=== PATIENT | female | born 1975 | race Caucasian/White ===

== ENCOUNTER 2016-12-14 | Inpatient (IN) | payer OTHER, MEDICARE, MEDICAID ==
[~2016-12-14] VITALS: Ht 167.6 cm; Wt 57.1 kg
[2016-12-14] VITALS (10 sets, daily range): BP systolic 82–136; BP diastolic 51–74
[2016-12-14] MEDS ORDERED: PANTOPRAZOLE 80 MG in SODIUM CHLORIDE 0.9% 50 ML IVPB ONE (00:11)
[2016-12-14] MEDS ORDERED: FENTANYL PF 100 MCG/2ML ONE (00:24)
[2016-12-14] MEDS ORDERED: PANTOPRAZOLE 40 MG IV ONE (00:24)
[2016-12-14] MEDS ORDERED: ONDANSETRON 2MG/ML, 2ML ONE (00:24)
[2016-12-14] MEDS ORDERED: SODIUM CHLORIDE 0.9% 1,000ML IVBOLUS ONE ×2 (00:30→01:30)
[2016-12-14] MEDS ORDERED: SODIUM CHLORIDE FLUSH 10ML SYR IVF ONE (00:30)
[2016-12-14] MEDS ORDERED: PANTOPRAZOLE 40 MG IV IVP ONE (00:30)
[2016-12-14] MEDS ORDERED: FENTANYL PF 100 MCG/2ML IVPush PRN (00:30)
[2016-12-14] MEDS ORDERED: ONDANSETRON 2MG/ML, 2ML IVPush ONE (00:30)
[2016-12-14 00:55] LABS: ASPARTATE AMINO TRANSFERASE 9 U/L (15-37)
[2016-12-14 01:00] LABS: DIFF TOTAL CELLS COUNTED 100 CELL DIFF
[2016-12-14 01:04] LABS: BLOOD UREA NITROGEN 105 mg/dL (7-18); VERIFY COUNTS? YES
[2016-12-14 01:05] LABS: HYPOCHROMIA 1+; POLYCHROMASIA 1+
[2016-12-14 01:08] LABS: IS PT STATUS REG ER OR PRE ER? YES
[2016-12-14] MEDS ORDERED: CEFTRIAXONE PMX 1GM/50ML 50 ML IVPB ONE (01:30)
[2016-12-14] MEDS ORDERED: CEFTRIAXONE PMX 1GM/50ML 50 ML ONE (02:01)
[2016-12-14] MEDS ORDERED: SODIUM CHLORIDE 0.9% 1,000 ML IV SCH (02:45)
[2016-12-14] MEDS ORDERED: SPIR50TA2 PO (02:50)
[2016-12-14] MEDS ORDERED: SUCR1TAB26 PO (02:50)
[2016-12-14] MEDS ORDERED: POTA20PA8 PO (02:50)
[2016-12-14] MEDS ORDERED: RANI150T4 PO (02:50)
[2016-12-14] MEDS ORDERED: RABE20TA5 PO (02:50)
[2016-12-14] MEDS ORDERED: POTASSIUM CHLORIDE 40 MEQ in SODIUM CHLORIDE 0.9% 500 ML IV ONE (03:00)
[2016-12-14] MEDS: PROMETHAZINE 25 MG/ML, 1ML IM PRN ×3 (03:54→20:27)
[2016-12-14 04:07] LABS: ASPARTATE AMINO TRANSFERASE 9 U/L (15-37)
[2016-12-14 04:11] LABS: BLOOD UREA NITROGEN 101 mg/dL (7-18); IS PT STATUS REG ER OR PRE ER? NO
[2016-12-14] MEDS: PANTOPRAZOLE 80 MG in SODIUM CHLORIDE 0.9% 100 ML IV SCH ×2 (06:29→13:00)
[2016-12-14 09:34] LABS: IS PT STATUS REG ER OR PRE ER? NO
[2016-12-14] MEDS: VANCOMYCIN 50 MG/ML ORAL SUSP PO SCH ×3 (10:02→21:39)
[2016-12-14] MEDS: POTASSIUM CHLORIDE 20 MEQ in SODIUM CHLORIDE 0.9% 1,000 ML IV SCH ×2 (10:04→20:27)
[2016-12-14] MEDS ORDERED: MIDAZOLAM 1 MG/ML, 5ML ONE (12:54)
[2016-12-14] MEDS ORDERED: FENTANYL PF 250 MCG/5ML ONE (12:55)
[2016-12-14] MEDS: ONDANSETRON 2MG/ML, 2ML IVPush PRN (17:11)
[2016-12-14] MEDS: MORPHINE SULFATE 4 MG/ML, 1ML IVPush PRN ×2 (17:11→20:27)
[2016-12-14] MEDS: PANTOPRAZOLE 40 MG IV IVPush SCH (20:27)
[2016-12-15] MEDS: MORPHINE SULFATE 4 MG/ML, 1ML IVPush PRN ×5 (01:49→15:59)
[2016-12-15] MEDS ORDERED: CEFTRIAXONE PMX 1GM/50ML 50 ML IV SCH (03:00)
[2016-12-15] MEDS: POTASSIUM CHLORIDE 20 MEQ in SODIUM CHLORIDE 0.9% 1,000 ML IV SCH ×2 (03:10→20:37)
[2016-12-15] MEDS: VANCOMYCIN 50 MG/ML ORAL SUSP PO SCH ×4 (03:35→20:37)
[2016-12-15 04:00] VITALS: BP 108/70
[2016-12-15] MEDS: ONDANSETRON 2MG/ML, 2ML IVPush PRN (06:28)
[2016-12-15] MEDS ORDERED: EPINEPHRINE SYRINGE 0.1 MG/ML, 10ML ONE (08:11)
[2016-12-15 09:03] LABS: ASPARTATE AMINO TRANSFERASE 7 U/L (15-37); BLOOD UREA NITROGEN 50 mg/dL (7-18)
[2016-12-15] MEDS: PANTOPRAZOLE 40 MG IV IVPush SCH ×2 (09:41→20:37)
[2016-12-15] MEDS: HYDROcodone/APAP 5/325 TABLET PO PRN ×3 (09:41→20:15)
[2016-12-15] MEDS: POTASSIUM CHLORIDE 20 MEQ TAB.ER.PRT PO SCH ×3 (12:39→18:45)
[2016-12-15 13:47] VITALS: BP 102/56
[2016-12-15] MEDS ORDERED: ONDANSETRON 2MG/ML, 2ML IVPush PRN (15:30)
[2016-12-15 17:06] VITALS: BP 87/55
[2016-12-15] MEDS ORDERED: SODIUM CHLORIDE 0.9% 250 ML IV ONE (17:30)
[2016-12-15 20:14] VITALS: BP 104/72
[2016-12-16 01:35] VITALS: BP 111/74
[2016-12-16] MEDS: HYDROcodone/APAP 5/325 TABLET PO PRN ×4 (01:57→13:06)
[2016-12-16 02:26] LABS: BLOOD UREA NITROGEN 31 mg/dL (7-18)
[2016-12-16] MEDS ORDERED: MAGNESIUM SULFATE PMX 2GM/50ML 50 ML IV ONE ×2 (03:30)
[2016-12-16] MEDS: VANCOMYCIN 50 MG/ML ORAL SUSP PO SCH ×2 (03:33→08:33)
[2016-12-16] MEDS: POTASSIUM CHLORIDE 20 MEQ in SODIUM CHLORIDE 0.9% 1,000 ML IV SCH (06:07)
[2016-12-16 08:30] VITALS: BP 117/86
[2016-12-16] MEDS: PANTOPRAZOLE 40 MG IV IVPush SCH (08:33)
[2016-12-16] MEDS ORDERED: SPIRONOLACTONE 25 MG TABLET PO SCH (09:30)
[2016-12-16] MEDS ORDERED: CEFU250T66 PO (10:32)
[2016-12-16] MEDS ORDERED: SPIR25TA PO (10:32)
[2016-12-16] MEDS ORDERED: OMEP-110 PO (10:32)
[2016-12-16] MEDS ORDERED: VANC1VIA3 PO (10:32)
[2016-12-16] MEDS ORDERED: POTA20PA8 PO (10:32)
[2016-12-16] MEDS: POTASSIUM CHLORIDE 20 MEQ PACKET PO SCH ×2 (11:00→12:30)
[2016-12-16] MEDS ORDERED: POTASSIUM CHLORIDE 20 MEQ TAB.ER.PRT PO SCH (11:00)
== END 2016-12-16 13:20 | disposition home or self-care (01) | DRG 380 ==
LOC: ED 00:50 → EDIP 01:37 → SUATTDRO 02:27 → CCU 03:19 → 3NW 12-15 12:59
PROVIDERS: ADMIT Internal Medicine; ATTEND Internal Medicine
PROC: 3E0G8GC Introduction of Other Therapeutic Substance into Upper GI, Via Natural or Artificial Opening Endoscopic (ICD-10-PCS; 2016-12-14)
PROC: 0W3P8ZZ Control Bleeding in Gastrointestinal Tract, Via Natural or Artificial Opening Endoscopic (ICD-10-PCS; 2016-12-14)
PROC: 0DB68ZX Excision of Stomach, Via Natural or Artificial Opening Endoscopic, Diagnostic (ICD-10-PCS; 2016-12-14)
PROC: 0T9B70Z Drainage of Bladder with Drainage Device, Via Natural or Artificial Opening (ICD-10-PCS; 2016-12-14)
PROC: 30233N1 Transfusion of Nonautologous Red Blood Cells into Peripheral Vein, Percutaneous Approach (ICD-10-PCS; principal; 2016-12-14 14:15)
DX: K22.11 Ulcer of esophagus with bleeding (principal); E43 Unspecified severe protein-calorie malnutrition; N17.9 Acute kidney failure, unspecified; N18.4 Chronic kidney disease, stage 4 (severe); R57.9 Shock, unspecified; D62 Acute posthemorrhagic anemia; E87.2 Acidosis; E87.1 Hypo-osmolality and hyponatremia; A04.7 Enterocolitis due to Clostridium difficile; K26.4 Chronic or unspecified duodenal ulcer with hemorrhage; K44.9 Diaphragmatic hernia without obstruction or gangrene; K21.0 Gastro-esophageal reflux disease with esophagitis; E86.1 Hypovolemia; N30.10 Interstitial cystitis (chronic) without hematuria; K31.84 Gastroparesis; E87.6 Hypokalemia; E86.0 Dehydration; D72.825 Bandemia; N20.0 Calculus of kidney; M79.7 Fibromyalgia; F32.9 Major depressive disorder, single episode, unspecified; F41.9 Anxiety disorder, unspecified; Z87.440 Personal history of urinary (tract) infections; Z86.010 Personal history of colon polyps; Z68.20 Body mass index [BMI] 20.0-20.9, adult
CPT/HCPCS: 36415; 71010; 80048; 80053; 81001; 82550; 82728; 82941; 83540; 83550; 83605; 83690; 83735; 84100; 84132; 84484; 84703; 85014; 85018; 85025; 85610; 85730; 86078; 86850; 86900; 86923; 87040; 87077; 87081; 87086; 87186; 87324; 87493; 88305; 93005; J0696; J2250; J2405; J2550; J3010; J3370; J3480; C9113; J3475; J7030; J7040; P9016

== ENCOUNTER 2017-01-22 14:27 | Emergency (ER) | payer OTHER, MEDICARE, MEDICAID ==
[~2017-01-22] VITALS: Ht 167.6 cm; Wt 58.0 kg
[~2017-01-22 14:27] MED LIST: CEFU250T66 PO; OMEP-110 PO; POTA20PA8 PO; RABE20TA5 PO; RANI150T4 PO; SPIR25TA PO; SPIR50TA2 PO; SUCR1TAB26 PO; VANC1VIA3 PO
[2017-01-22] MEDS ORDERED: SODIUM CHLORIDE 0.9% 1,000 ML IV ONE (15:26)
[2017-01-22] MEDS ORDERED: PANTOPRAZOLE 80 MG in SODIUM CHLORIDE 0.9% 50 ML IVPB ONE (15:26)
[2017-01-22] MEDS ORDERED: HYDROmorphone 1 MG/ML, 1ML IVPush PRN (15:30)
[2017-01-22] MEDS ORDERED: SODIUM CHLORIDE 0.9% 1,000ML IVBOLUS ONE (15:30)
[2017-01-22] MEDS ORDERED: ONDANSETRON 2MG/ML, 2ML IVPush ONE (15:30)
[2017-01-22] MEDS ORDERED: SODIUM CHLORIDE FLUSH 10ML SYR IVF ONE (15:30)
[2017-01-22] MEDS ORDERED: HYDROmorphone 1 MG/ML, 1ML ONE (16:22)
[2017-01-22] MEDS ORDERED: ONDANSETRON 2MG/ML, 2ML ONE (16:22)
[2017-01-22 16:35] LABS: ASPARTATE AMINO TRANSFERASE 12 U/L (15-37); BLOOD UREA NITROGEN 11 mg/dL (7-18)
[2017-01-22 17:17] VITALS: BP 118/74
[2017-01-22] MEDS ORDERED: SPIR50TA2 PO (17:20)
[2017-01-22] MEDS ORDERED: CITA40TA12 PO (17:22)
[2017-01-22] MEDS ORDERED: CYAN100063 INJ (17:22)
[2017-01-22] MEDS ORDERED: RANI-276 PO (17:22)
[2017-01-22] MEDS ORDERED: DIPH1TAB PO (17:22)
== END 2017-01-22 17:59 | disposition home or self-care (01) ==
LOC: ED 16:21
DX: K29.00 Acute gastritis without bleeding (principal); N19 Unspecified kidney failure; Z90.721 Acquired absence of ovaries, unilateral
CPT/HCPCS: 36415; 74022; 80053; 81003; 83605; 83690; 84484; 84703; 85025; 85610; 85730; 93005; 96365; 96375; 99285; C9113; J1170; J2405; J7030

== ENCOUNTER → 2017-06-30 | Outpatient (CLI) | payer OTHER, MEDICARE, MEDICAID ==
[~2017-06-30] MED LIST changes: +CITA40TA12 PO; +CYAN100063 INJ; +DIPH1TAB PO; +POTA20PA25 PO; -POTA20PA8 PO; +RABE20TA18 PO; -RABE20TA5 PO; +RANI-276 PO; -SUCR1TAB26 PO; +SUCR1TAB33 PO
== END | disposition home or self-care (01) ==
LOC: RAD 15:11
PROVIDERS: ATTEND Neurological Surgery
DX: M41.83 Other forms of scoliosis, cervicothoracic region (principal); M47.892 Other spondylosis, cervical region; S13.140A Subluxation of C3/C4 cervical vertebrae, initial encounter; X58.XXXA Exposure to other specified factors, initial encounter; Y93.89 Activity, other specified; Y92.89 Other specified places as the place of occurrence of the external cause; Y99.8 Other external cause status
CPT/HCPCS: 72082

== ENCOUNTER 2017-07-14 07:28 | Inpatient (IN) | payer OTHER, MEDICARE, MEDICAID ==
[~2017-07-14] VITALS: Ht 167.6 cm; Wt 63.0 kg
[~2017-07-14 07:28] MED LIST changes: +BACITRACIN 50,000 UNIT ONE; +BUPIVACAINE/PF 0.5% ONE; +EPINEPHRINE 1 MG/ML, 1ML ONE; +THROMBIN 20,000 UNIT VIAL TP ONE
[2017-07-14 07:58] LABS: HCG UR LOT HCG7030192
[2017-07-14 07:59] VITALS: BP 119/66
[2017-07-14] MEDS ORDERED: QUET50TA5 PO (08:08)
[2017-07-14] MEDS ORDERED: ONDA8TAB9 PO (08:08)
[2017-07-14] MEDS ORDERED: OMEP20TA62 PO (08:08)
[2017-07-14] MEDS ORDERED: POTA25TA PO (08:13)
[2017-07-14] MEDS ORDERED: SODIUM CHLORIDE 0.9% 1,000 ML IV SCH (08:13)
[2017-07-14 08:23] LABS: HCG UR OBC PASS
[2017-07-14] MEDS ORDERED: KETAMINE 10 MG/ML, 20ML ONE (09:03)
[2017-07-14] MEDS ORDERED: FENTANYL PF 100 MCG/2ML ONE ×3 (09:03→10:48)
[2017-07-14] MEDS ORDERED: REMIFENTANIL 2 MG ONE (09:03)
[2017-07-14] MEDS ORDERED: MIDAZOLAM 1 MG/ML, 2ML ONE (09:08)
[2017-07-14] MEDS ORDERED: BUPIVACAINE/PF 0.5% INFIL ONE (09:31)
[2017-07-14] MEDS ORDERED: BACITRACIN 50,000 UNIT IRRIG ONE (09:34)
[2017-07-14] MEDS ORDERED: EPINEPHRINE 1 MG/ML, 1ML INFIL ONE (09:34)
[2017-07-14] MEDS ORDERED: THROMBIN 20,000 UNIT VIAL TP ONE (09:35)
[2017-07-14] MEDS ORDERED: PROPOFOL 50 ML ONE (09:43)
[2017-07-14] MEDS ORDERED: PROPOFOL 10 MG/ML, 20ML ONE ×2 (09:43)
[2017-07-14] MEDS ORDERED: ONDANSETRON 2MG/ML, 2ML ONE (09:44)
[2017-07-14] MEDS ORDERED: DEXAMETHASONE 4 MG/ML, 1ML ONE ×2 (09:44)
[2017-07-14] MEDS ORDERED: EPHEDRINE 50 MG/ML, 1ML ONE (09:44)
[2017-07-14] MEDS ORDERED: CEFAZOLIN 1,000 MG ONE (09:44)
[2017-07-14] MEDS ORDERED: ROCURONIUM 10 MG/ML,10ML ONE (09:44)
[2017-07-14] MEDS ORDERED: ACETAMINOPHEN 650 MG/20.3 ML UDC ONE (10:47)
[2017-07-14] MEDS ORDERED: PROMETHAZINE 25 MG/ML, 1ML ONE (10:47)
[2017-07-14] MEDS ORDERED: OXYcodone 5 MG/5 ML ORAL.SOL UDC ONE ×2 (10:48→11:40)
[2017-07-14] MEDS: FENTANYL PF 100 MCG/2ML IV PRN ×2 (10:49→10:58)
[2017-07-14] MEDS ORDERED: ACETAMINOPHEN 325 MG TABLET PO PRN (11:00)
[2017-07-14] MEDS ORDERED: PROMETHAZINE 25 MG/ML, 1ML IV PRN (11:00)
[2017-07-14] MEDS ORDERED: DIAZEPAM 5 MG/ML, 2ML IVPush PRN (11:00)
[2017-07-14] MEDS ORDERED: MEPERIDINE/PF 25MG/0.5ML IVPush PRN (11:00)
[2017-07-14] MEDS ORDERED: METHOCARBAMOL 750 MG TABLET ONE (11:04)
[2017-07-14] MEDS: OXYcodone 5 MG/5 ML ORAL.SOL UDC PO PRN ×2 (11:10→11:41)
[2017-07-14] MEDS ORDERED: HYDROmorphone 2 MG/ML, 1ML ONE (11:13)
[2017-07-14] MEDS: HYDROmorphone 1 MG/ML, 1ML IV PRN ×3 (11:16→11:39)
[2017-07-14] MEDS ORDERED: METHOCARBAMOL 750 MG TABLET PO ONE (11:30)
[2017-07-14 12:25] VITALS: BP 100/65
[2017-07-14] MEDS ORDERED: morphine SULFATE 10 MG/ML, 1ML ONE (12:33)
[2017-07-14 13:20] LABS: BLOOD UREA NITROGEN 18 mg/dL (7-18)
[2017-07-14] MEDS ORDERED: DIPHENHYDRAMINE 50 MG CAPSULE PO PRN (13:30)
[2017-07-14] MEDS ORDERED: DIPHENHYDRAMINE 50 MG/ML, 1ML IM PRN (13:30)
[2017-07-14] MEDS ORDERED: LABETALOL 5MG/ML, 20ML IV PRN (13:30)
[2017-07-14] MEDS ORDERED: MAGNESIUM HYDROXIDE 8%, 30ML UDC PO PRN (13:30)
[2017-07-14] MEDS ORDERED: BISACODYL 10 MG SUPP PR PRN (13:30)
[2017-07-14] MEDS ORDERED: ONDANSETRON 2MG/ML, 2ML IV PRN (13:30)
[2017-07-14] MEDS ORDERED: morphine SULFATE 10 MG/ML, 1ML IV PRN (13:30)
[2017-07-14] MEDS ORDERED: HYDROcodone/APAP 5/325 TABLET PO PRN (13:30)
[2017-07-14] MEDS ORDERED: HYDROcodone/APAP 10/325 MG TABLET PO PRN (13:30)
[2017-07-14] MEDS: NS + 20MEQ KCL 1,000 ML IV SCH (14:19)
[2017-07-14] MEDS ORDERED: DIAZEPAM 5 MG/ML, 10ML VIAL IVPush PRN (16:30)
[2017-07-14] MEDS ORDERED: POTASSIUM CHLORIDE 20 MEQ TAB.ER.PRT PO ONE (16:30)
[2017-07-14] MEDS: CEFAZOLIN PMX 1GM/50ML 50 ML IVPB SCH (17:33)
[2017-07-14 18:30] VITALS: BP 99/64
[2017-07-14] MEDS: OXYcodone/APAP 10/325MG TABLET PO PRN (18:30)
[2017-07-14] MEDS: METHOCARBAMOL 750 MG TABLET PO PRN (19:38)
[2017-07-14] MEDS: SPIRONOLACTONE 50 MG TABLET PO SCH (20:56)
[2017-07-14] MEDS: OMEPRAZOLE 20 MG CAPSULE.DR PO SCH (20:56)
[2017-07-14] MEDS: K-LYTE 25 MEQ TABLET.EFF PO SCH (20:56)
[2017-07-14 22:33] VITALS: BP 92/44
[2017-07-15] MEDS: OXYcodone/APAP 10/325MG TABLET PO PRN ×3 (00:32→10:42)
[2017-07-15 00:44] VITALS: BP 97/64
[2017-07-15] MEDS: CEFAZOLIN PMX 1GM/50ML 50 ML IVPB SCH (00:56)
[2017-07-15] MEDS: NS + 20MEQ KCL 1,000 ML IV SCH (01:43)
[2017-07-15 04:54] VITALS: BP 92/58
[2017-07-15 05:30] LABS: BLOOD UREA NITROGEN 13 mg/dL (7-18)
[2017-07-15] MEDS: SPIRONOLACTONE 50 MG TABLET PO SCH (07:33)
[2017-07-15] MEDS: K-LYTE 25 MEQ TABLET.EFF PO SCH (07:40)
[2017-07-15] MEDS: METHOCARBAMOL 750 MG TABLET PO PRN (07:40)
[2017-07-15] MEDS: OMEPRAZOLE 20 MG CAPSULE.DR PO SCH (07:40)
[2017-07-15] MEDS ORDERED: DEXAMETHASONE 4 MG/ML, 1ML IV SCH (08:00)
[2017-07-15 08:10] VITALS: BP 95/62
[2017-07-15] MEDS ORDERED: SENNA/DOCUSATE TABLET PO SCH (09:00)
[2017-07-15] MEDS ORDERED: OXYC-307 PO (09:59)
[2017-07-15] MEDS ORDERED: SENN1TAB7 PO (10:00)
[2017-07-15] MEDS ORDERED: METH750T87 PO (10:00)
[2017-07-15] MEDS ORDERED: METH4TAB2 PO (10:01)
[2017-07-15] MEDS ORDERED: ONDANSETRON ODT 4 MG PO PRN (11:00)
== END 2017-07-15 11:35 | disposition home or self-care (01) | DRG 473 ==
LOC: ORIP 07:28 → 4NOR 12:27 → DCLOUNGE 07-15 11:15
PROVIDERS: ADMIT Neurological Surgery; ATTEND Neurological Surgery
PROC: 0RG10J0 Fusion of Cervical Vertebral Joint with Synthetic Substitute, Anterior Approach, Anterior Column, Open Approach (ICD-10-PCS; 2017-07-14)
PROC: 0RB30ZZ Excision of Cervical Vertebral Disc, Open Approach (ICD-10-PCS; principal; 2017-07-14 09:30)
DX: M50.023 Cervical disc disorder at C6-C7 level with myelopathy (principal)
CPT/HCPCS: 36415; 72040; 80048; 81025; C1713; J0171; J0690; J1100; J1170; J2250; J2405; J2550; J2704; J3010; J3480; J3490; Q0162; C1762; J2270; J7030

== ENCOUNTER → 2018-08-22 | Outpatient (CLI) | payer OTHER, MEDICARE, MEDICAID ==
[~2018-08-22] MED LIST changes: -BACITRACIN 50,000 UNIT ONE; -BUPIVACAINE/PF 0.5% ONE; -EPINEPHRINE 1 MG/ML, 1ML ONE; +METH4TAB2 PO; +METH750T87 PO; +OMEP20TA62 PO; +ONDA8TAB9 PO; +OXYC-307 PO; +POTA25TA PO; +QUET50TA5 PO; -RANI-276 PO; +RANI-448 PO; +SENN1TAB8 PO; -SPIR50TA2 PO; +SPIR50TA4 PO; -THROMBIN 20,000 UNIT VIAL TP ONE
== END | disposition home or self-care (01) ==
LOC: RAD 13:51
PROVIDERS: ATTEND Orthopaedic Surgery
DX: M89.8X8 Other specified disorders of bone, other site (principal)

== ENCOUNTER 2018-10-05 11:19 | Observation (INO) | payer OTHER, MEDICARE, MEDICAID ==
[~2018-10-05] VITALS: Ht 167.6 cm; Wt 64.6 kg
[~2018-10-05 11:19] MED LIST changes: +SENN-177 PO; -SENN1TAB8 PO
[2018-10-05] MEDS ORDERED: LACTATED RINGERS 1,000 ML IV SCH (12:35)
[2018-10-05] MEDS ORDERED: POTASSIUM PO ×2 (12:38→12:46)
[2018-10-05 12:42] LABS: ALANINE AMINOTRANSFERASE 23 U/L (12-78); ALBUMIN 4.5 g/dL (3.4-5.0); ANION GAP 10 mmol/L (5-15); CALCIUM 8.8 mg/dL (8.5-10.1); CHLORIDE 107 mmol/L (98-107); CREATININE 3.24 mg/dL (0.55-1.02)
[2018-10-05 12:45] LABS: ALKALINE PHOSPHATASE 80 U/L (45-117); BILIRUBIN,TOTAL 0.7 mg/dL (0.2-1.0); TOTAL PROTEIN 7.9 g/dL (6.4-8.2)
[2018-10-05] MEDS ORDERED: RANI-448 PO (12:46)
[2018-10-05] MEDS ORDERED: POTASSIUM CITRATE PO (12:46)
[2018-10-05] MEDS ORDERED: SUCR1TAB33 PO (12:46)
[2018-10-05] MEDS ORDERED: RABE20TA18 PO (12:46)
[2018-10-05] MEDS ORDERED: VITAMIN B12 SQ (12:46)
[2018-10-05] MEDS ORDERED: LAMOTIL PO (12:46)
[2018-10-05] MEDS ORDERED: HYDR-3652 PO (12:46)
[2018-10-05] MEDS ORDERED: OMEP20TA62 PO (12:46)
[2018-10-05 12:49] LABS: HCG UR SG 1.015 (1.003-1.030)
[2018-10-05 12:55] VITALS: BP 97/67
[2018-10-05] MEDS ORDERED: SODIUM CHLORIDE 0.9% 1,000 ML IV SCH (13:28)
[2018-10-05] MEDS ORDERED: FENTANYL PF 250 MCG/5ML ONE (13:38)
[2018-10-05] MEDS ORDERED: MIDAZOLAM 1 MG/ML, 2ML ONE (13:38)
[2018-10-05] MEDS ORDERED: PHENYLEPHRINE 10 MG/ML ONE (14:26)
[2018-10-05] MEDS ORDERED: CEFAZOLIN 1,000 MG ONE (14:26)
[2018-10-05] MEDS ORDERED: PROPOFOL 10 MG/ML, 20ML ONE (14:26)
[2018-10-05] MEDS ORDERED: DEXAMETHASONE 4 MG/ML, 1ML ONE (14:26)
[2018-10-05] MEDS ORDERED: ONDANSETRON 2MG/ML, 2ML ONE (14:26)
[2018-10-05] MEDS ORDERED: ACETAMINOPHEN 325 MG TABLET PO PRN (15:00)
[2018-10-05] MEDS ORDERED: ALBUTEROL SULFATE 2.5 MG/3 ML NPPB PRN (15:00)
[2018-10-05] MEDS ORDERED: OXYcodone 5 MG/5 ML ORAL.SOL UDC PO PRN ×2 (15:00→19:30)
[2018-10-05] MEDS ORDERED: hydrALAzine 20 MG/ML, 1ML IV PRN (15:00)
[2018-10-05] MEDS ORDERED: DIAZEPAM 5 MG/ML, 2ML IVPush PRN (15:00)
[2018-10-05] MEDS ORDERED: MEPERIDINE/PF 25MG/0.5ML IVPush PRN (15:00)
[2018-10-05] MEDS ORDERED: LABETALOL 5MG/ML, 20ML IV PRN (15:00)
[2018-10-05] MEDS ORDERED: FENTANYL PF 100 MCG/2ML ONE (15:45)
[2018-10-05] MEDS ORDERED: OXYcodone 5 MG/5 ML ORAL.SOL UDC ONE (15:45)
[2018-10-05] MEDS ORDERED: HYDROmorphone 2 MG/ML, 1ML ONE (15:45)
[2018-10-05] MEDS: FENTANYL PF 100 MCG/2ML IV PRN ×2 (15:48→16:13)
[2018-10-05] MEDS: HYDROmorphone 2 MG/ML, 1ML IVPush PRN ×3 (15:48→16:30)
[2018-10-05] MEDS ORDERED: PROMETHAZINE 25 MG/ML, 1ML ONE (15:52)
[2018-10-05] MEDS: PROMETHAZINE 25 MG/ML, 1ML IV PRN ×2 (15:55→16:12)
[2018-10-05] MEDS ORDERED: HYDROcodone/APAP 5/325 TABLET PO PRN (16:00)
[2018-10-05] MEDS ORDERED: BISACODYL 10 MG SUPP PR PRN (16:00)
[2018-10-05] MEDS ORDERED: morphine SULFATE 10 MG/ML, 1ML IVPush PRN (16:00)
[2018-10-05] MEDS ORDERED: SENNA/DOCUSATE TABLET PO PRN (16:00)
[2018-10-05] MEDS ORDERED: ONDANSETRON 2MG/ML, 2ML IVPush PRN (16:00)
[2018-10-05] MEDS ORDERED: PROMETHAZINE 25 MG/ML, 1ML IM PRN (16:00)
[2018-10-05] MEDS ORDERED: MAGNESIUM HYDROXIDE 8%, 30ML UDC PO PRN (16:00)
[2018-10-05] MEDS: SODIUM CHLORIDE 0.9% 1,000 ML IV SCH (19:30)
[2018-10-05] MEDS ORDERED: ONDANSETRON 2MG/ML, 2ML IV PRN (19:30)
[2018-10-05] MEDS: DOCUSATE 100 MG CAPSULE PO SCH (19:53)
[2018-10-05] MEDS: OXYcodone/APAP 5/325MG TABLET PO PRN (19:53)
[2018-10-05 20:08] VITALS: BP 96/60
[2018-10-05] MEDS: morphine SULFATE 10 MG/ML, 1ML IV PRN (22:14)
[2018-10-05] MEDS: CEFAZOLIN PMX 1GM/50ML 50 ML IVPB SCH (22:47)
[2018-10-06 00:20] VITALS: BP 84/44
[2018-10-06 03:48] VITALS: BP 88/44
[2018-10-06] MEDS: ACETAMINOPHEN 325 MG TABLET PO PRN ×2 (04:55→08:47)
[2018-10-06] MEDS: CEFAZOLIN PMX 1GM/50ML 50 ML IVPB SCH (06:46)
[2018-10-06 07:21] VITALS: BP 91/57
[2018-10-06] MEDS: SODIUM CHLORIDE 0.9% 1,000 ML IV SCH (08:41)
[2018-10-06] MEDS: DOCUSATE 100 MG CAPSULE PO SCH (08:55)
[2018-10-06] MEDS: HEPARIN 5,000 UNITS/ML, 1ML SQ SCH ×2 (08:55→15:30)
[2018-10-06] MEDS: OXYcodone/APAP 5/325MG TABLET PO PRN (12:30)
[2018-10-06 12:41] VITALS: BP 103/71
[2018-10-06] MEDS: morphine SULFATE 10 MG/ML, 1ML IV PRN (13:33)
== END 2018-10-06 15:55 | disposition home or self-care (01) ==
LOC: OUT 11:19 → 4NOR 17:45 → DCLOUNGE 10-06 15:45
PROVIDERS: ADMIT Orthopaedic Surgery; ATTEND Orthopaedic Surgery
DX: S72.144A Nondisplaced intertrochanteric fracture of right femur, initial encounter for closed fracture (principal); N18.9 Chronic kidney disease, unspecified; Z79.899 Other long term (current) drug therapy; X58.XXXA Exposure to other specified factors, initial encounter; Y93.89 Activity, other specified; Y92.89 Other specified places as the place of occurrence of the external cause
CPT/HCPCS: 27236; 36415; 73501; 76000; 80053; 81025; 96365; 96366; 96372; 96375; 96376; 97161; 97165; C1713; G0378; J0690; J1100; J1170; J1644; J2250; J2270; J2370; J2405; J2550; J2704; J3010; J7030